=== PATIENT | male | born 2000 | race African-American/Black ===

== ENCOUNTER 2019-09-24 15:15 | Emergency (ER) | payer SELFPAY ==
[~2019-09-24] VITALS: Ht 170.2 cm; Wt 65.8 kg
[2019-09-24] MEDS ORDERED: LORAZEPAM INJ 2 MG/ML VIAL IM ONE (15:30)
[2019-09-24] MEDS ORDERED: diphenhydrAMINE HCL 50 MG/ML VIAL IM ONE (15:30)
[2019-09-24] MEDS ORDERED: HALOPERIDOL LACTATE INJ 5 MG/ML VIAL IM ONE (15:30)
[2019-09-24] MEDS ORDERED: diphenhydrAMINE HCL 50 MG/ML VIAL ONE (15:43)
[2019-09-24] MEDS ORDERED: LORAZEPAM INJ 2 MG/ML VIAL ONE (15:43)
[2019-09-24] MEDS ORDERED: HALOPERIDOL LACTATE INJ 5 MG/ML VIAL ONE (15:44)
[2019-09-24 15:45] LABS: BASOPHILS % (AUTO) 0.3 % (0.0-2.0); HEMATOCRIT 48 % (39-51); HEMOGLOBIN 16.4 g/dL (13.5-17.5); LYMPHOCYTES % (AUTO) 7.1 % (20.0-44.0); MEAN CORPUSCULAR HGB CONC 34 g/dl (31.0-36.0); MEAN CORPUSCULAR VOLUME 91 fL (80-96); MONOCYTES # (AUTO) 1.1 /CMM (0.1-1.30); MONOCYTES % (AUTO) 7.8 % (2.0-12.0); NEUTROPHILS # (AUTO) 11.4 /CMM (1.8-8.9); NEUTROPHILS % (AUTO) 84.8 % (43.0-81.0); PLATELET COUNT (AUTO) 182 /CMM (150-450); RED BLOOD CELL COUNT(AUTO) 5.29 MIL/uL (4.5-6.0); WHITE BLOOD COUNT (AUTO) 13.5 K/uL (4.3-11.0)
[2019-09-24 15:56] LABS: CALCIUM, SERUM 10.5 mg/dL (8.5-10.1); CARBON DIOXIDE 26 mmol/L (21-32); CHLORIDE 104 mmol/L (98-107); CREATININE 1.8 mg/dL (0.6-1.3); GLUCOSE 151 mg/dL (74-106); POTASSIUM 3.3 mmol/L (3.5-5.1); SODIUM SERUM 143 mmol/L (136-145); UREA NITROGEN, BLOOD 17 mg/dL (7-18)
[2019-09-24 16:01] LABS: ALANINE AMINOTRANSFERASE 27 U/L (12-78); ALBUMIN 5.2 g/dL (3.4-5.0); ALCOHOL, BLOOD < 3 mg/dL (0-0); ALKALINE PHOSPHATASE 70 U/L (46-116); ASPARTATE AMINOTRANSFERASE 32 U/L (15-37); BILIRUBIN,DIRECT 0.2 mg/dL (0.0-0.2); BILIRUBIN,TOTAL 0.6 mg/dL (0.2-1.0); SALICYLATE 3.8 mg/dL (2.8-20.0); TOTAL PROTEIN, SERUM 8.9 g/dL (6.4-8.2)
[2019-09-24 16:02] LABS: APPEARANCE,URINE Clear (CLEAR); BILIRUBIN,URINE SMALL (NEGATIVE); BLOOD, URINE Trace-intact Ery/uL (NEGATIVE); COLOR,URINE Yellow (YELLOW); KETONES,URINE Trace (NEGATIVE); LEUKOCYTE ESTERASE ,URINE Negative (NEGATIVE); NITRITE, URINE Negative (NEGATIVE); PROTEIN,URINE 30 mg/dl (NEGATIVE); UGLUCOSE Negative (NEGATIVE); UROBILINOGEN,URINE 0.2 EU/dL (0.2)
--- NOTE | 2019-09-24 16:05 | NUR ---
PT BRIGITTE GIVENS AND JUAN F BEATTY WITH A C/O PT RUNNING INTO TRAFFIC. PT DENIES SI, BUT IS C/O FEELING PSYCHOTIC. PT IS REFUSING TO GIVE HIS NAME TO JACI. PT WAS TRIAGED AND TAKEN TO [facility].
[2019-09-24 16:14] LABS: ACETAMINOPHEN 0 ug/ml (10-30)
[2019-09-24 16:28] LABS: BACTERIA,URINE Few /HPF (None Seen); SQUAMOUS EPITHELIAL CELL,UR Rare /HPF (None Seen); WBC,URINE 0-2 /HPF (0-3)
--- NOTE | 2019-09-24 16:40 | NUR ---
PT APPEARS TO BE RESTING COMFORTABLY WITH NO S/S OF PAIN OR DISTRESS.
[2019-09-24] MEDS ORDERED: POTASSIUM CHLORIDE 20 MEQ TAB.PRT.SR PO ONE (17:00)
--- NOTE | 2019-09-24 17:39 | NUR ---
PT APPEARS TO BE RESTING COMFORTABLY WITH NO S/S OF PAIN OR DISTRESS. ANNAMARIA IQBAL LVN IS AT THE BEDSIDE.
--- NOTE | 2019-09-24 17:41 | NUR ---
PT IS NOT ABLE TO INGEST K-DUR AT THIS TIME. PT IS SO SLEEPY.
--- NOTE | 2019-09-24 18:51 | NUR ---
PT IS SLEEPING SOUNDLY. WITH NO S/S OF PAIN OR DISTRESS. PT IS ON THE MONITOR AND CONTINUOUS POX.
--- NOTE | 2019-09-24 21:00 | NUR ---
PT IS STILL SLEEPING SOUNDLY. PT IS ON THE MONITOR AND CONTINUOUS PULSE OX. PT'S VSS. PT IS ON 2L O2 VIA NC SATURATING AT 100%.
--- NOTE | 2019-09-24 21:43 | NUR ---
PT IS SLEEPING SOUNDLY. WILL CONTINUE TO MONITOR THE PT. VSS. NAD NOTED.
--- NOTE | 2019-09-24 22:15 | NUR ---
PT APPEARS TO BE SLEEPING SOUNDLY. RESP ARE EVEN AND UNLBORED. VSS. PT IS ON 1.5L O2 AND IS SATURATING 100%. SITTER IS AT THE BEDSIDE. WILL CONTINUE TO MONITOR THE PT.
--- NOTE | 2019-09-24 23:13 | NUR ---
PT IS STILL NOT ALERT ENOUGH FOR KDUR AT THIS TIME. WILL TRY TO GIVE THE PT HIS MEDICATION WHEN HE IS MORE ALERT, PER DR. NOVOA
--- NOTE | 2019-09-25 00:50 | NUR ---
PT IS AWAKE AND REC'D POTASSIUM ORDERED. PT ALSO REC'D A JUICE BOX AND PUDDING. PT IS TOLERATING PO WELL. PT IS AA&O X3.
[2019-09-25] MEDS ORDERED: POTASSIUM CHLORIDE 20 MEQ TAB.PRT.SR PO ONE (00:53)
--- NOTE | 2019-09-25 01:05 | NUR ---
PT STATED THAT HIS FATHER IS BAN, BUT ALSO GOES BY [employer] AND CAN BE REACHED AT [phone]
--- NOTE | 2019-09-25 01:33 | NUR ---
Patient discharged to home in stable condition. Written and verbal after care instructions given. Patient verbalizes understanding of instruction. VSS. PT AMBULATED OUT WITH A STEADY GAIT. PT'S FATHER CAME TO PICK HIM UP.
[2019-09-25 01:34] VITALS: BP 112/74
== END 2019-09-25 01:35 | disposition home or self-care (01) ==
LOC: ER 15:18 → EDBD 15:18 → ER 09-25 01:35
DX: F23 Brief psychotic disorder (principal); E87.6 Hypokalemia; E83.52 Hypercalcemia; N28.9 Disorder of kidney and ureter, unspecified; F12.10 Cannabis abuse, uncomplicated
CPT/HCPCS: 36415; 71045; 80048; 80076; 80305; 80307; 80329; 81001; 85025; 96372 ×2; 99285; G0480; J1200; J1630; J2060; 81000-TC